=== PATIENT | male | born 1970 | race Caucasian/White ===

== ENCOUNTER 2019-05-12 10:35 | Inpatient (IN) ==
[2019-05-12] MEDS ORDERED: WATER IV ONE (10:59)
[2019-05-12] MEDS ORDERED: ALTEPLASE IV PRN (10:59)
[2019-05-12] MEDS ORDERED: [UNRECOGNIZED DRUG - OTHER] IV PRN (10:59)
[2019-05-12] MEDS ORDERED: ALTEPLASE IV ONE (10:59)
[2019-05-12] MEDS ORDERED: STERILE FOR IV ONE (10:59)
[2019-05-12] MEDS ORDERED: ALTEPLASE 100 MG VIAL IV ONE (10:59)
[2019-05-12 11:22] LABS: BILIRUBIN,URINE NEGATIVE (NEG); CLARITY,URINE CLEAR (CLEAR); COLOR,URINE YELLOW (Y); OCCULT BLOOD,URINE NEGATIVE (NEG); PROTEIN,URINE NEGATIVE (NEG); UROBILINOGEN,URINE 0.2 EU/dL (0.2)
[2019-05-12 11:25] LABS: GLUCOSE, URINE (UA) >=1000 mg/dL (NEG)
[2019-05-12 11:26] LABS: URINE SAMPLE TYPE CLEAN CATCH URINE
[2019-05-12 11:30] LABS: URINE SAMPLE TYPE VOIDED SPECIMEN; URINE SPECIFIC GRAVITY - MAN 1.032
[2019-05-12 11:31] LABS: AMPHETAMINE SCREEN NEGATIVE (NEG); CANNABINOID SCREEN,URINE NEGATIVE (NEG); COCAINE SCREEN NEGATIVE (NEG); METHADONE URINE SCREEN NEGATIVE (NEG); METHAMPHETAMINES SCREEN,URINE POSITIVE (NEG); OPIATE SCREEN,URINE NEGATIVE (NEG)
[2019-05-12] MEDS: Sodium Chloride 0.9% 1,000 ML PRIMARY IV ONE ×2 (11:49→12:30)
[2019-05-12 11:54] LABS: Hematocrit [HCT] 48.1 % (42.0-52.0); Hemoglobin [HGB] 16.6 g/dL (14.0-18.0); MEAN CORPUSCULAR VOLUME 94.5 FL (80-90); RED BLOOD COUNT 5.09 10^6/uL (4.70-6.10)
[2019-05-12 11:55] LABS: BASOPHILS % (AUTO) 0.7 % (0-1); EOSINOPHILS % (AUTO) 1.3 % (0-8); MEAN CORPUSCULAR HGB CONC 34.5 g/dL (33-37); MONOCYTES % (AUTO) 9.4 % (5-15); NEUTROPHILS # (AUTO) 5.15 10*3/UL; NEUTROPHILS % (AUTO) 53.9 % (50-80)
[2019-05-12 11:56] LABS: BASOPHILS # (AUTO) 0.07 10*3/UL; EOSINOPHILS # (AUTO) 0.12 10*3/UL; LYMPHOCYTES # (AUTO) 3.29 10*3/uL; PLATELET MORPHOLOGY COMMENT NORMAL MORPHOLOGY (NORM); RBC MORPHOLOGY COMMENT NORMAL MORPHOLOGY (NORM); WBC MORPHOLOGY COMMENT NORMAL MORPHOLOGY (NORM)
[2019-05-12 11:58] LABS: BLOOD UREA NITROGEN 13 mg/dL (7-22); BUN/CREATININE RATIO 16.25 (6-20); SERUM ALBUMIN 4.4 g/dL (3.5-4.8)
[2019-05-12 12:03] LABS: VENOUS PH 7.41 (7.32-7.42)
[2019-05-12] MEDS ORDERED: LIDOCAINE W/ SODIUM BICARB 0.5 ML SYR SUBD PRN (14:21)
[2019-05-12 14:30] LABS: BLOOD UREA NITROGEN 11 mg/dL (7-22); BUN/CREATININE RATIO 18.33 (6-20)
[2019-05-12] MEDS: Insulin Lispro Flexpen 300 UNIT/3 ML INSULN.PEN SUBCUT SCH ×2 (17:37→20:43)
[2019-05-12] MEDS ORDERED: ACETAMINOPHEN 325 MG TABLET PO PRN (18:37)
[2019-05-12 19:37] LABS: BLOOD UREA NITROGEN 13 mg/dL (7-22); BUN/CREATININE RATIO 18.57 (6-20)
[2019-05-12] MEDS: metFORMIN 500 MG TABLET PO SCH (20:42)
[2019-05-12] MEDS ORDERED: CALCIUM CARBONATE 500 MG (TUMS) CHEWABLE TABLET PO PRN (20:57)
[2019-05-12] MEDS ORDERED: Insulin Glargine SoloStar Inj 100 UNIT/ML INSULN.PEN SUBCUT SCH ×2 (21:00)
[2019-05-13 05:28] VITALS: TEMP 98.1
[2019-05-13 06:00] LABS: HEMOGLOBIN A1C 8.06 % (4.2-6.0)
[2019-05-13 06:04] LABS: Hematocrit [HCT] 41.9 % (42.0-52.0); Hemoglobin [HGB] 14.4 g/dL (14.0-18.0); MEAN CORPUSCULAR HGB CONC 34.4 g/dL (33-37); RED BLOOD COUNT 4.39 10^6/uL (4.70-6.10)
[2019-05-13 06:05] LABS: BASOPHILS # (AUTO) 0.08 10*3/UL; EOSINOPHILS # (AUTO) 0.27 10*3/UL; EOSINOPHILS % (AUTO) 3.2 % (0-8); LYMPHOCYTES # (AUTO) 3.65 10*3/uL; MEAN CORPUSCULAR VOLUME 95.4 FL (80-90); MEAN PLATELET VOLUME 11.8 FL (7.4-12.2); MONOCYTES # (AUTO) 0.75 10*3/UL (0.3-0.8); MONOCYTES % (AUTO) 8.9 % (5-15); NEUTROPHILS # (AUTO) 3.62 10*3/UL; NEUTROPHILS % (AUTO) 43.2 % (50-80); PLATELET MORPHOLOGY COMMENT NORMAL MORPHOLOGY (NORM); RBC MORPHOLOGY COMMENT NORMAL MORPHOLOGY (NORM); WBC MORPHOLOGY COMMENT NORMAL MORPHOLOGY (NORM)
[2019-05-13 06:06] LABS: BLOOD UREA NITROGEN 14 mg/dL (7-22); SERUM ALBUMIN 3.4 g/dL (3.5-4.8)
[2019-05-13 06:52] VITALS: BP 124/92; RESP 22
[2019-05-13] MEDS: metFORMIN 500 MG TABLET PO SCH (08:36)
[2019-05-13] MEDS: Insulin Lispro Flexpen 300 UNIT/3 ML INSULN.PEN SUBCUT SCH (08:36)
[2019-05-13] MEDS ORDERED: PANTOPRAZOLE IV 40 MG VIAL IVP SCH (09:00)
[2019-05-13 09:23] VITALS: O2SAT 96
== END 2019-05-13 11:05 | disposition home or self-care (01) | DRG 638 ==
LOC: ER 10:35 → MED/SURG 14:19
PROVIDERS: ADMIT Internal Medicine; ATTEND Internal Medicine